=== PATIENT | male | born 2000 | race Caucasian/White ===

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

== ENCOUNTER 2022-06-23 20:30 | Emergency (ER) | payer BC ==
[2022-06-23] MEDS ORDERED: Polyethylene Glycol/Electrolytes 4,000 ML Bottle PO ONE (20:31)
[2022-06-23] MEDS ORDERED: Ciprofloxacin 500 MG Tab PO ONE (20:31)
[2022-06-23] MEDS ORDERED: Ondansetron 4 MG Tab.DIS PO ONE (20:31)
[2022-06-23] MEDS: Sodium Chloride 0.9% 10 ML Syringe FLUSH PRN (20:46)
[2022-06-23] MEDS: Ketorolac 30 MG/ML SDV IVPUSH ONE (20:50)
[2022-06-23 21:01] LABS: ESTIMATED GFR 73 mL/min (>60)
[2022-06-23] MEDS: Ondansetron 4 MG/2 ML SDV IVPUSH PRN (21:22)
[2022-06-23] MEDS: Morphine 2 MG/ML SYRINGE IVPUSH ONE (21:25)
[2022-06-23] MEDS: Diatrizoate Meglumine/Diatrizoate Sodium 37% 30 ML Bottle PO ONE (23:15)
[2022-06-24] MEDS: Sodium Chloride 0.9% 1,000 ML IV SCH (00:25)
[2022-06-24] MEDS: Polyethylene Glycol/Electrolytes 4,000 ML Bottle PO ONE (01:55)
[2022-06-24] MEDS: Ciprofloxacin 500 MG Tab PO STA (02:01)
[2022-06-24] MEDS: Sulfamethoxazole/Trimethoprim 800-160 MG Tab PO STA ×2 (02:01)
[2022-06-24 04:36] VITALS: BP 141/98; PULSE 68
== END 2022-06-24 01:55 | disposition home or self-care (01) ==
LOC: FB.ED 20:30
DX: N39.0 Urinary tract infection, site not specified (principal); K59.00 Constipation, unspecified; Z94.0 Kidney transplant status; Z91.040 Latex allergy status
CPT/HCPCS: 36415; 74176; 80048; 81001; 85025; 87086; 87088; 87186; 96374; 96375; 99284-25; A9270-GY; J1885; J2270; J2405; J3490; J7030; Q0162; Q9963